=== PATIENT | male | born 1980 | race Asian ===

== ENCOUNTER 2020-06-24 09:20 | Emergency (ER) | payer SELFPAY ==
[~2020-06-24] VITALS: Ht 172.7 cm; Wt 75.9 kg
--- NOTE | 2020-06-24 09:41 | NUR ---
PATIENT HAS BEEN HAVING FEVERS, COUGH FOR TWO WEEKS.
[2020-06-24] MEDS ORDERED: IBUPROFEN 600 MG TABLET ONE (09:52)
[2020-06-24] MEDS ORDERED: IBUPROFEN 200 MG TABLET PO ONE (10:00)
[2020-06-24 10:36] LABS: ALANINE AMINOTRANSFERASE 53 U/L (12-78); ALBUMIN 2.8 g/dL (3.4-5.0); ANION GAP 9 mmol/L (5-15); CALCIUM 8.1 mg/dL (8.5-10.1); CHLORIDE 98 mmol/L (98-107); CREATININE 0.98 mg/dL (0.7-1.3)
[2020-06-24 10:38] LABS: ALKALINE PHOSPHATASE 46 U/L (45-117); BILIRUBIN,TOTAL 0.8 mg/dL (0.2-1.0); TOTAL PROTEIN 7.2 g/dL (6.4-8.2)
[2020-06-24 10:44] LABS: BASOPHILS # (AUTO) 0.02 x10^3/uL (0-0.1); BASOPHILS % (AUTO) 0 % (0-1); EOSINOPHILS # (AUTO) 0.06 x10^3/uL (0-0.4); EOSINOPHILS % (AUTO) 1 % (1-7); LYMPHOCYTES # (AUTO) 0.91 x10^3/uL (1-3.4); LYMPHOCYTES % (AUTO) 13 % (22-44); MD NO; MEAN CORPUSCULAR HGB CONC 34.1 g/dL (33.2-36.2); MEAN CORPUSCULAR VOLUME 82.1 fL (81-97); MEAN PLATELET VOLUME 8.3 fL (7.4-10.4); MONOCYTES # (AUTO) 0.32 x10^3/uL (0.2-0.8); MONOCYTES % (AUTO) 4 % (2-9); NEUTROPHILS % (AUTO) 82 % (42-75); PLATELET COUNT 290 x10^3/uL (130-400); RED CELL DISTRIBUTION WIDTH 12.9 % (9.4-14.8)
[2020-06-24 10:56] VITALS: BP 112/78
== END 2020-06-24 11:14 | disposition home or self-care (01) ==
LOC: ED 10:45
DX: J15.9 Unspecified bacterial pneumonia (principal); Z20.828 Contact with and (suspected) exposure to other viral communicable diseases; R00.0 Tachycardia, unspecified
CPT/HCPCS: 36415; 71045; 80053; 85025; 87635; 93005; 99285